=== PATIENT | female | born 1965 | race Caucasian/White ===

== ENCOUNTER 2020-01-23 09:11 | Outpatient (CLI) | payer MEDICARE, MEDICAID | END 2020-01-23 09:12 | disposition home or self-care (01) | LOC: BUREKG 09:11 | PROVIDERS: ATTEND Family Medicine | DX: Z01.818 Encounter for other preprocedural examination (principal) | CPT/HCPCS: 93005; 93010 ==

== ENCOUNTER 2020-12-03 13:52 | Outpatient (CLI) | payer MEDICARE, MEDICAID | END 2020-12-03 13:53 | disposition home or self-care (01) | LOC: BURRAD 13:52 | PROVIDERS: ATTEND Family Medicine | DX: M54.5 Low back pain (principal); M47.816 Spondylosis without myelopathy or radiculopathy, lumbar region | CPT/HCPCS: 72100 ==

== ENCOUNTER 2022-04-07 14:48 | Outpatient (CLI) | payer OTHER, MEDICAID | END 2022-04-07 14:49 | disposition home or self-care (01) | LOC: BURRAD 14:48 | PROVIDERS: ATTEND Family Medicine | DX: M47.22 Other spondylosis with radiculopathy, cervical region (principal); M47.26 Other spondylosis with radiculopathy, lumbar region | CPT/HCPCS: 72040; 72110 ==